=== PATIENT | female | born 1970 | race African-American/Black ===

== ENCOUNTER 2016-10-06 18:31 | Emergency (ER) | payer BC ==
[~2016-10-06] VITALS: Ht 165.1 cm; Wt 104.5 kg
[~2016-10-06 18:31] MED LIST: DIPH50TA PO; PRED20 PO; RANI150T PO
[2016-10-06 18:32] VITALS: BP 128/80; PULSE 97; RESP 18; TEMP 98.1; O2SAT 97
[2016-10-06] MEDS ORDERED: ACETAMINOPHEN/CODEINE 300 MG/30 MG TAB PO ONE (19:45)
[2016-10-06] MEDS ORDERED: ONDANSETRON ODT 4 MG TAB PO ONE (19:45)
--- NOTE | 2016-10-06 20:15 | PD ---
HPI Chief Complaint: Fall Time Seen by Provider: 19:30 Travel History International Travel<30 days: No Contact w/Intl Traveler<30days: No Traveled to known affect area: No History of Present Illness HPI 45-year-old female presents for evaluation of left shoulder and left hip pain. She reports that this morning she tripped on the sidewalk and fell, landing on her left side. Since then she has had pain with range of motion left shoulder. She has also had some soreness in the lateral left hip. Pain is worse with movement. She has been ambulatory all day. The pain has persisted which prompted evaluation. She tried using [id number] ibuprofen for symptom relief. She denies any other injuries and she has no other complaints. [facility] Past Medical History ?: Not Social History Alcohol Use: No Tobacco Use: Yes Allergies-Medications (Allergen,Severity, Reaction): Coded Allergies: Morphine (Verified Adverse Reaction, Intermediate, SWELLING, 10/06/16) Reported Meds & Prescriptions Reported Meds & Active Scripts Active Tylenol-Codeine #3 (Acetaminophen-Codeine) 300-30 mg Tab 1 Tab PO Q4H PRN Reported Ibuprofen 800 Mg Tab 800 Mg PO Q6HR PRN Review of Systems Except as stated in HPI: all other systems reviewed are Neg Physical Exam Narrative GENERAL: Well developed well-nourished female in no acute distress SKIN: Warm and dry. No abrasions, no bruising, no soft tissue swelling. HEAD: Atraumatic. Normocephalic. CARDIOVASCULAR: Regular rate and rhythm. No murmur appreciated. RESPIRATORY: No accessory muscle use. Clear to auscultation. Breath sounds equal bilaterally. GASTROINTESTINAL: Abdomen soft, non-tender, nondistended. MUSCULOSKELETAL: No obvious deformities. There is tenderness to palpation to the left glenohumeral joint, lateral left hip. The patient has slight limited abduction, internal and external rotation of the left shoulder secondary to pain. She has full range of motion of the lower extremities. NEUROLOGICAL: Awake and alert. No obvious cranial nerve deficits. Motor grossly within normal limits. Normal speech. Data Data Last Documented VS Vital Signs Date Time Temp Pulse Resp B/P Pulse Ox O2 Delivery O2 Flow Rate FiO2 10/06/16 20:31 20 Room Air 10/06/16 18:32 98.1 97 128/80 97 Orders Hip, Uni(Ap&Lat) W Ap Pelvis (1/25/17 ) Shoulder, Complete (>2vws) (10/06/16 ) Acetamin-Codeine 300-30 Mg (Tylenol-Code (10/06/16 19:45) Ondansetron Odt (Zofran Odt) (10/06/16 19:45) Support Splint (10/06/16 20:39) MDM Medical Decision Making Medical Screen Exam Complete: Yes Emergency Medical Condition: Yes Medical Record Reviewed: Yes Differential Diagnosis Rotator cuff strain, tear, acromioclavicular separation, proximal humeral fracture, hip contusion, bursitis, pelvic fracture Narrative Course X-ray imaging left shoulder, hip or unremarkable. I suspect a strain to the left rotator cuff. The patient is being discharged with a sling for short-term use as well as Tylenol with codeine for breakthrough pain. We discussed passive range of motion activities utilizing left shoulder and recommended outpatient follow-up with primary care physician in one to 2 weeks. She is stable for discharge. Diagnosis Primary Impression: Left shoulder strain Qualified Code: S46.912A - Left shoulder strain, initial encounter Additional Impression: Contusion of left hip Qualified Code: S70.02XA - Contusion of left hip, initial encounter Additional Instructions: Sling for short-term on a 2 day use only. Perform passive range of motion activities several times a day. Take ibuprofen for discomfort. Take Tylenol with codeine for breakthrough pain. Follow-up in one to 2 weeks with primary care physician. Return for any emergent medical conditions. Med/Other Pt SpecificInfo: Prescription(s) given, Orthopedic Instructions Scripts Acetaminophen-Codeine (Tylenol-Codeine #3)300-30 mg Tab1 Tab PO Q4H PRN (PAIN) # 20 TAB Ref 0 Prov:Larissa Dinero DO 10/06/16 Disposition: 01 DISCHARGE HOME Condition: Stable Bradley Parkinson Oct 06, 2016 20:15
--- NOTE | 2016-10-06 20:22 | RADRPT ---
EXAM DATE/TIME: 10/06/2016 19:56 [facility] COMPARISON: No previous studies available for comparison. INDICATIONS : Left shoulder pain after falling today. MEDICAL HISTORY : None. SURGICAL HISTORY : None. ENCOUNTER: Initial ACUITY: 1 day PAIN SCORE: 9/10 LOCATION: Left hip. FINDINGS: Multiple view examination of the left shoulder demonstrates no evidence of fracture or dislocation. The glenohumeral and acromioclavicular joints are maintained. There is normal range of motion betwee n internal and external rotation. Bony mineralization is normal. CONCLUSION: Unremarkable examination of the left shoulder. Shimon Connell MD on October 06, 2016 at 20:20 Board Certified Radiologist. This report was verified electronically.
--- NOTE | 2016-10-06 20:23 | RADRPT ---
EXAM DATE/TIME: 10/06/2016 20:02 [facility] COMPARISON: No previous studies available for comparison. INDICATIONS : Left hip pain after falling today. MEDICAL HISTORY : None. SURGICAL HISTORY : None. ENCOUNTER: Initial ACUITY: 1 day PAIN SCORE: 9/10 LOCATION: Left shoulder. FINDINGS: Examination of the left hip was performed with AP Pelvis. The primary and secondary trabecular patte rn of the femoral neck is intact. The hip joint is of normal width without significant sclerosis or bony hypertrophy. The acetabulum is grossly intact. CONCLUSION: Negative trauma study.. Shimon Connell MD on October 06, 2016 at 20:20 Board Certified Radiologist. This report was verified electronically.
[2016-10-06] MEDS ORDERED: IBUP800T23 PO (20:30)
[2016-10-06] MEDS ORDERED: TYLETAB34 PO (20:38)
[2016-10-06 20:59] VITALS: BP 173/63; TEMP 98.2
== END 2016-10-06 21:07 | disposition home or self-care (01) ==
LOC: NEPB 18:31
DX: S46.912A Strain of unspecified muscle, fascia and tendon at shoulder and upper arm level, left arm, initial encounter (principal); S70.02XA Contusion of left hip, initial encounter; W01.198A Fall on same level from slipping, tripping and stumbling with subsequent striking against other object, initial encounter; Y93.9 Activity, unspecified; Y92.480 Sidewalk as the place of occurrence of the external cause
CPT/HCPCS: 73030; 73502; 99284